=== PATIENT | male | born 1975 | race Two or more races ===

== ENCOUNTER 2017-06-08 15:52 | Inpatient (IN) | payer BC ==
[~2017-06-08] VITALS: Ht 172.7 cm; Wt 112.0 kg
[2017-06-08 16:01] VITALS: Ht 172.7 cm; Wt 112.0 kg
[2017-06-08 16:33] LABS: BASOPHIL % 0.3 % (0-2); PLATELET COUNT 163 x10^3mcL (130-400); RED CELL DISTRIBUTION WIDTH 13.1 % (11.5-14.5)
[2017-06-08 16:44] LABS: CARBON DIOXIDE 23.7 mmol/L (21-32); CHLORIDE SERUM 109 mmol/L (98-107); CREATININE SERUM 0.7 mg/dL (0.7-1.3); GFR1 > 60 mL/min; GLUCOSE SERUM 145 mg/dL (74-106); POTASSIUM SERUM 4.2 mmol/L (3.5-5.1); SODIUM SERUM 141 mmol/L (136-145)
[2017-06-08 16:49] LABS: ALKALINE PHOSPHATASE 48 U/L (46-116); ALT/SGPT 35 U/L (16-63); AST/SGOT 15 U/L (15-37); BILIRUBIN TOTAL 0.17 mg/dL (0.20-1.00)
[2017-06-08 16:50] LABS: ALBUMIN 2.8 g/dL (3.4-5.0); TOTAL PROTEIN, SERUM 5.5 g/dL (6.4-8.2)
[2017-06-08 17:39] LABS: BASOPHIL % 0.3 % (0-2); PLATELET COUNT 166 x10^3mcL (130-400); RED CELL DISTRIBUTION WIDTH 12.9 % (11.5-14.5)
[2017-06-08] MEDS ORDERED: PROINH (18:23)
[2017-06-08] MEDS ORDERED: QVAR0.08 MG/Ac (18:23)
[2017-06-08 18:51] VITALS: BP 127/72
[2017-06-08 20:16] LABS: CHOLESTEROL/HDL RATIO 2.6; MAGNESIUM 1.7 mg/dL (1.8-2.4); PHOSPHOROUS 2.2 mg/dL (2.5-4.9)
[2017-06-08 20:23] LABS: FREE T4 0.91 ng/dL (0.76-1.46); FREE THYROXINE INDEX 1.8 ug/dL (1.4-4.5); T4(THYROXINE) 4.7 ug/dL (4.7-13.3)
[2017-06-08 20:29] LABS: T3 TOTAL 0.96 ng/mL
[2017-06-08 20:31] VITALS: BP 102/56
[2017-06-08 20:33] VITALS: BP 127/72
[2017-06-09 05:28] VITALS: BP 114/69
[2017-06-09 06:59] LABS: CALCIUM 8.3 mg/dL (8.5-10.1); CARBON DIOXIDE 26.7 mmol/L (21-32); CHLORIDE SERUM 109 mmol/L (98-107); CREATININE SERUM 0.6 mg/dL (0.7-1.3); GFR1 > 60 mL/min; GLUCOSE SERUM 111 mg/dL (74-106); POTASSIUM SERUM 4.4 mmol/L (3.5-5.1); SODIUM SERUM 142 mmol/L (136-145)
[2017-06-09 07:00] LABS: BASOPHIL % 0.4 % (0-2); PLATELET COUNT 176 x10^3mcL (130-400); RED CELL DISTRIBUTION WIDTH 12.8 % (11.5-14.5)
[2017-06-09 08:07] VITALS: BP 110/76
[2017-06-09 10:23] VITALS: BP 116/70
[2017-06-09 12:44] VITALS: BP 111/69
[2017-06-09] MEDS ORDERED: BIA500 PO ×2 (15:43→16:35)
[2017-06-09] MEDS ORDERED: AMO500 PO ×2 (15:44→16:35)
[2017-06-09] MEDS ORDERED: LEADER OMEPRAZO20 M1 PO ×4 (15:48→16:37)
[2017-06-09 16:28] VITALS: BP 111/69
[2017-06-09 16:41] VITALS: BP 99/62
== END 2017-06-09 18:36 | disposition home or self-care (01) | DRG 368 ==
LOC: ED 15:52 → DU 18:03
PROVIDERS: Emergency Medicine; Family Medicine; Internal Medicine Gastroenterology
PROC: 0DB68ZX Excision of Stomach, Via Natural or Artificial Opening Endoscopic, Diagnostic (ICD-10-PCS; principal; 2017-06-09 08:30)
DX: K22.6 Gastro-esophageal laceration-hemorrhage syndrome (principal); N17.0 Acute kidney failure with tubular necrosis; E43 Unspecified severe protein-calorie malnutrition; D64.9 Anemia, unspecified; D72.829 Elevated white blood cell count, unspecified; E66.9 Obesity, unspecified; B96.81 Helicobacter pylori [H. pylori] as the cause of diseases classified elsewhere; J45.909 Unspecified asthma, uncomplicated; Z68.37 Body mass index [BMI] 37.0-37.9, adult
CPT/HCPCS: 43235; 83880; 84439; C9113; J1200; J1610; J2250; J2310; J2405; J3010; J3490; J7030; Q0092